=== PATIENT | male | born 1955 | race African-American/Black ===

== ENCOUNTER 2018-07-07 04:53 | Inpatient (IN) | payer MEDICARE, MEDICAID ==
[~2018-07-07] VITALS: Ht 175.3 cm; Wt 81.6 kg
[2018-07-07] MEDS ORDERED: ALBUTEROL (0.5%) 2.5MG/0.5ML NEB HHN ONE (05:45)
[2018-07-07 06:07] LABS: BASOPHILS % 2.1 % (0.0-2.0); EOSINOPHILS % 0.7 % (0.0-5.0); HEMATOCRIT. 41.4 % (42.0-52.0); HEMOGLOBIN. 13.8 g/dL (14.0-18.0); LYMPHOCYTES % 30.9 % (20.0-50.0); MEAN CORPUSCULAR HEMOGLOBIN 32.8 pg (28.0-32.0); MEAN CORPUSCULAR VOLUME 98.2 fL (80.0-94.0); MEAN PLATELET VOLUME 8.6 fl (7.4-10.4); MONOCYTES % 7.2 % (2.0-8.0); NEUTROPHILS % 59.1 % (40.0-76.0); PLATELET 302 x1000/uL (130-400); RED BLOOD CELL COUNT 4.22 mill/uL (4.7-6.1); RED CELL DISTRIBUTION WIDTH 15.8 % (11.6-14.6)
[2018-07-07 06:18] LABS: CLARITY URINE CLEAR (CLEAR); COLOR URINE DARK YELLOW (YELLOW); KETONES URINE NEGATIVE (NEGATIVE); LEUKOCYTE ESTERASE URINE NEGATIVE (NEGATIVE); NITRITE URINE NEGATIVE (NEGATIVE); OCCULT BLOOD URINE NEGATIVE (NEGATIVE); PROTEIN URINE 1+ (NEGATIVE); SPECIFIC GRAVITY URINE 1.025 (1.005-1.030)
[2018-07-07 06:21] LABS: INR 1.3; PARTIAL THROMBOPLASTIN TIME 29.7 sec (23.4-31.0); PROTHROMBIN TIME 13.4 sec (9.1-11.1)
[2018-07-07 06:27] LABS: CHLORIDE 109 mEq/L (98-107)
[2018-07-07] MEDS ORDERED: FUROSEMIDE 40MG/4ML VIAL IVP NR (07:00)
[2018-07-07] MEDS ORDERED: NITROGLYCERIN 0.4MG TABLET SL SL ONE (07:15)
[2018-07-07] MEDS ORDERED: NITROGLYCERIN OINT 1GM/INCH UDPKT TD ONE (07:15)
[2018-07-07] MEDS ORDERED: MAGNESIUM/ALUMINUM HYDROXIDE/SIMETHICONE 30ML UDC PO PRN (08:15)
[2018-07-07] MEDS ORDERED: KETOROLAC 15MG/ML VIAL IV PRN (08:15)
[2018-07-07] MEDS ORDERED: DOCUSATE SODIUM 100MG CAPSULE PO PRN (08:15)
[2018-07-07] MEDS ORDERED: CLONIDINE 0.1MG TABLET PO PRN (08:15)
[2018-07-07] MEDS ORDERED: ZOLPIDEM TARTRATE 5MG TABLET PO PRN (08:15)
[2018-07-07] MEDS ORDERED: NA PHOS,M-B/NA PHOS,DI-BA ENEMA 118ML PR PRN (08:15)
[2018-07-07] MEDS ORDERED: ACETAMINOPHEN 325MG TABLET PO PRN (08:15)
[2018-07-07] MEDS ORDERED: ONDANSETRON HCL 4MG/2ML INJ IV PRN (08:15)
[2018-07-07] MEDS ORDERED: NITROGLYCERIN 0.4MG TABLET SL SL PRN (08:15)
[2018-07-07] MEDS ORDERED: IPRATROPIUM/ALBUTEROL 0.5-3(2.5)MG/3ML NEB INH PRN (08:15)
[2018-07-07] MEDS ORDERED: GUAIFENESIN 200MG/10ML SUGAR FREE UDC PO PRN (08:15)
[2018-07-07 10:50] VITALS: BP 142/108
[2018-07-07] MEDS ORDERED: FUROSEMIDE 40MG/4ML VIAL IVP SCH (11:19)
[2018-07-07 11:25] VITALS: BP 142/102
[2018-07-07] MEDS: ENOXAPARIN 40MG/0.4ML SYR SUBCUT SCH (12:00)
[2018-07-07] MEDS: LISINOPRIL 20MG TABLET PO SCH ×2 (14:07→21:04)
[2018-07-07] MEDS: FAMOTIDINE 20MG TABLET PO SCH ×2 (14:07→23:30)
[2018-07-07] MEDS: ASPIRIN 325MG EC TABLET PO SCH (14:07)
[2018-07-07] MEDS: SPIRONOLACTONE 25MG TABLET PO SCH ×2 (14:07→21:05)
[2018-07-07 16:00] VITALS: BP 143/112
[2018-07-07 16:14] LABS: CREATINE KINASE MB FRACTION 1.8 ng/mL (0.5-3.6)
[2018-07-07 16:33] LABS: HEPATITIS B SURFACE ANTIGEN NEGATIVE
[2018-07-07 16:52] LABS: VITAMIN B12 SERUM 581 pg/mL (211-911)
[2018-07-07 17:01] LABS: FOLIC ACID (FOLATE) SERUM > 20.00 ng/mL (>5.38); HEPATITIS B CORE AB IGM NEGATIVE
[2018-07-07 17:03] LABS: HEPATITIS A AB IGM NEGATIVE (NEGATIVE)
[2018-07-07] MEDS: CARVEDILOL 3.125 MG TABLET PO SCH (17:46)
[2018-07-07 20:29] VITALS: BP 134/99
[2018-07-07] MEDS: FUROSEMIDE 40MG/4ML VIAL IVP SCH (21:08)
[2018-07-07 22:54] LABS: *BARBITURATES SCREEN URINE NEGATIVE (NEGATIVE); *BENZODIAZEPINES SCREEN URINE NEGATIVE (NEGATIVE); *COCAINE SCREEN URINE NEGATIVE (NEGATIVE); CANNABINOID URINE SCREEN PRESUMTIVE POSITIVE (NEGATIVE); OPIATES URINE SCREEN NEGATIVE (NEGATIVE); PHENCYCLIDINE URINE SCREEN NEGATIVE (NEGATIVE)
[2018-07-07 22:55] LABS: *AMPHETAMINES SCREEN URINE NEGATIVE (NEGATIVE); METHADONE URINE SCREEN NEGATIVE (NEGATIVE)
[2018-07-08 00:24] LABS: CREATINE KINASE MB FRACTION 1.5 ng/mL (0.5-3.6)
[2018-07-08 00:42] VITALS: BP 138/104
[2018-07-08 04:00] VITALS: BP 149/109
[2018-07-08] MEDS: CARVEDILOL 3.125 MG TABLET PO SCH ×2 (06:12→18:28)
[2018-07-08 08:00] VITALS: BP 139/107
[2018-07-08] MEDS: FUROSEMIDE 40MG/4ML VIAL IVP SCH ×2 (08:54→20:53)
[2018-07-08] MEDS: LISINOPRIL 20MG TABLET PO SCH ×2 (08:54→20:54)
[2018-07-08] MEDS: SPIRONOLACTONE 25MG TABLET PO SCH ×2 (08:54→20:53)
[2018-07-08] MEDS: ASPIRIN 325MG EC TABLET PO SCH (08:55)
[2018-07-08] MEDS: FAMOTIDINE 20MG TABLET PO SCH ×2 (08:55→20:54)
[2018-07-08] MEDS: ENOXAPARIN 40MG/0.4ML SYR SUBCUT SCH (08:55)
[2018-07-08 12:00] VITALS: BP 135/89
[2018-07-08 16:00] VITALS: BP 120/85
[2018-07-08 20:10] VITALS: BP 112/77
[2018-07-09 00:05] VITALS: BP 108/79
[2018-07-09 04:09] VITALS: BP 118/90
[2018-07-09] MEDS: CARVEDILOL 3.125 MG TABLET PO SCH (05:43)
[2018-07-09 07:22] VITALS: BP 120/88
[2018-07-09] MEDS: FAMOTIDINE 20MG TABLET PO SCH ×2 (08:41→21:44)
[2018-07-09] MEDS: FUROSEMIDE 40MG/4ML VIAL IVP SCH ×2 (08:41→21:00)
[2018-07-09] MEDS: ASPIRIN 325MG EC TABLET PO SCH (08:41)
[2018-07-09] MEDS: ENOXAPARIN 40MG/0.4ML SYR SUBCUT SCH (08:42)
[2018-07-09] MEDS: LISINOPRIL 20MG TABLET PO SCH ×2 (08:42→21:00)
[2018-07-09] MEDS: SPIRONOLACTONE 25MG TABLET PO SCH ×2 (08:42→21:00)
[2018-07-09] MEDS ORDERED: POTASSIUM CHLORIDE 20MEQ/PACKET PO NR (10:15)
[2018-07-09 11:36] VITALS: BP 107/66
[2018-07-09] MEDS: POTASSIUM CHLORIDE 10MEQ TABLET SR PO SCH (12:00)
[2018-07-09] MEDS: SILDENAFIL CITRATE 20MG TABLET PO SCH ×2 (13:38→21:47)
[2018-07-09 16:01] LABS: BG CARBOXYHEMOGLOBIN 1.1 % (0.5-1.5); BG DEOXYHEMOGLOBIN 6.5 % (0.0-5.0); BG FRACTION INSPIRED OXYGEN 21; BG HCO3 ACT 27.7 mmol/L (22.0-26.0); BG METHEMOGLOBIN 0.8 % (0.0-1.5); BG OXYGEN SATURATION 93.4 % (92.0-98.5); BG OXYHEMOGLOBIN 91.6 % (94.0-97.0); BG PCO2 42.7 mmHg (35.0-45.0); BG PO2 75.5 mmHg (75.0-100.0); BG SAMPLE SITE RIGHT BRACHIAL; BG TOTAL HEMOGLOBIN 14.2 g/dL (12.0-18.0); BG VENT MODE ROOM AIR
[2018-07-09] MEDS: CARVEDILOL 6.25 MG TABLET PO SCH (17:52)
[2018-07-09 20:00] VITALS: BP 96/74
[2018-07-10] VITALS: BP 109/74
[2018-07-10 04:11] VITALS: BP 108/79
[2018-07-10] MEDS: CARVEDILOL 6.25 MG TABLET PO SCH ×2 (06:00→18:00)
[2018-07-10 06:38] LABS: HEMATOCRIT 37.5 % (42.0-52.0); HEMOGLOBIN 12.7 g/dL (14.0-18.0); MEAN CORPUSCULAR HEMOGLOBIN 32.6 pg (28.0-32.0); MEAN CORPUSCULAR VOLUME 96.7 fL (80.0-94.0); PLATELET 262 x1000/uL (130-400); RED BLOOD CELL COUNT 3.88 mill/uL (4.7-6.1); RED CELL DISTRIBUTION WIDTH 15.1 % (11.6-14.6)
[2018-07-10] MEDS: SILDENAFIL CITRATE 20MG TABLET PO SCH ×2 (06:39→14:00)
[2018-07-10 06:52] LABS: CHLORIDE 104 mEq/L (98-107)
[2018-07-10 08:00] VITALS: BP 108/80
[2018-07-10] MEDS: FAMOTIDINE 20MG TABLET PO SCH (08:28)
[2018-07-10] MEDS: FUROSEMIDE 40MG/4ML VIAL IVP SCH ×2 (08:28→08:39)
[2018-07-10] MEDS: POTASSIUM CHLORIDE 10MEQ TABLET SR PO SCH (08:28)
[2018-07-10] MEDS: ASPIRIN 325MG EC TABLET PO SCH (08:28)
[2018-07-10] MEDS: ENOXAPARIN 40MG/0.4ML SYR SUBCUT SCH (08:29)
[2018-07-10] MEDS: LISINOPRIL 20MG TABLET PO SCH ×2 (08:34→08:38)
[2018-07-10] MEDS: SPIRONOLACTONE 25MG TABLET PO SCH (08:34)
[2018-07-10 12:00] VITALS: BP 103/81
[2018-07-10 16:00] VITALS: BP 121/91
[2018-07-10 18:31] VITALS: BP 117/89
== END 2018-07-10 19:30 | disposition home or self-care (01) | DRG 291 ==
LOC: ER 04:53 → 6WST 07:42 → EDBEDREQ 07:45 → ENRESERV 09:49 → CANRESERV 09:49
PROVIDERS: ADMIT Internal Medicine; ATTEND Internal Medicine
DX: I13.0 Hypertensive heart and chronic kidney disease with heart failure and stage 1 through stage 4 chronic kidney disease, or unspecified chronic kidney disease (principal); I50.23 Acute on chronic systolic (congestive) heart failure; J96.00 Acute respiratory failure, unspecified whether with hypoxia or hypercapnia; J98.11 Atelectasis; N17.9 Acute kidney failure, unspecified; R17 Unspecified jaundice; F12.90 Cannabis use, unspecified, uncomplicated; D64.9 Anemia, unspecified; E87.6 Hypokalemia; I27.20 Pulmonary hypertension, unspecified; I34.0 Nonrheumatic mitral (valve) insufficiency; I42.9 Cardiomyopathy, unspecified; N18.9 Chronic kidney disease, unspecified; Z87.891 Personal history of nicotine dependence; Z91.11 Patient's noncompliance with dietary regimen; Z91.14 Patient's other noncompliance with medication regimen
CPT/HCPCS: 36415; 36600; 71045; 76700; 80048; 80053; 80061; 80076; 80305; 81003; 82375; 82550; 82553; 82607; 82746; 82805; 83036; 83540; 83550; 83735; 83880; 84132; 84443; 84484; 85025; 85027; 85610; 85730; 86705; 86709; 86803; 87340; 93005; 93306; 93970; 94618; 94640; 96374; 99285; J1650; J1940; J7611; J7620

== ENCOUNTER 2019-05-04 17:20 | Emergency (ER) | payer MEDICARE, MEDICAID ==
[~2019-05-04] VITALS: Ht 175.3 cm; Wt 90.0 kg
[2019-05-04 17:43] VITALS: BP 109/88
== END 2019-05-05 02:54 | disposition left against medical advice (07) ==
LOC: ER 17:20
DX: R07.89 Other chest pain (principal); Z53.21 Procedure and treatment not carried out due to patient leaving prior to being seen by health care provider
CPT/HCPCS: 93005

== ENCOUNTER 2019-07-23 01:41 | Inpatient (IN) | payer MEDICARE, MEDICAID ==
[~2019-07-23] VITALS: Ht 175.3 cm; Wt 89.4 kg
[2019-07-23] MEDS ORDERED: FUROSEMIDE 40MG/4ML VIAL IV ONE (03:15)
[2019-07-23 03:28] LABS: BASOPHILS % 1.5 % (0.0-2.0); EOSINOPHILS % 2.2 % (0.0-5.0); HEMATOCRIT. 37.8 % (42.0-52.0); LYMPHOCYTES % 32.7 % (20.0-50.0); MEAN CORPUSCULAR HEMOGLOBIN 33.5 pg (28.0-32.0); MEAN CORPUSCULAR VOLUME 97.2 fL (80.0-94.0); MEAN PLATELET VOLUME 7.8 fl (7.4-10.4); MONOCYTES % 7.4 % (2.0-8.0); NEUTROPHILS % 56.2 % (40.0-76.0); PLATELET 300 x1000/uL (130-400); RED BLOOD CELL COUNT 3.89 mill/uL (4.7-6.1)
[2019-07-23 03:34] LABS: CHLORIDE 105 mEq/L (98-107)
[2019-07-23] MEDS ORDERED: IOHEXOL-350 100 ML BOTTLE ONE (07:00)
[2019-07-23 08:00] VITALS: BP 131/88
[2019-07-23 08:01] VITALS: BP 131/88
[2019-07-23] MEDS ORDERED: POTA20TA82 PO (08:25)
[2019-07-23] MEDS ORDERED: CARV3.1242 PO (08:25)
[2019-07-23] MEDS ORDERED: FURO40TA5 PO (08:25)
[2019-07-23] MEDS ORDERED: LOSA50TA41 PO (08:26)
[2019-07-23] MEDS ORDERED: ASPI-986 PO (08:26)
[2019-07-23] MEDS ORDERED: GUAIFENESIN-DM 200MG-20MG/10ML UDC PO PRN (10:00)
[2019-07-23] MEDS ORDERED: IPRATROPIUM/ALBUTEROL 0.5-3(2.5)MG/3ML NEB HHN PRN (10:00)
[2019-07-23 11:48] VITALS: BP 132/82
[2019-07-23 12:31] VITALS: BP 134/61
[2019-07-23 16:00] VITALS: BP 128/56
[2019-07-23 20:00] VITALS: BP 135/72
[2019-07-24] VITALS (7 sets, daily range): BP systolic 124–143; BP diastolic 69–93
[2019-07-24 11:12] LABS: LDL CHOLESTEROL 79 mg/dL (5-100)
[2019-07-24 11:15] LABS: HDL CHOLESTEROL 59 mg/dL (40-59)
[2019-07-24] MEDS ORDERED: IPRATROPIUM/ALBUTEROL 0.5-3(2.5)MG/3ML NEB HHN PRN (12:15)
[2019-07-24] MEDS: FUROSEMIDE 40MG TABLET PO SCH (12:39)
[2019-07-24] MEDS: LOSARTAN POTASSIUM 50 MG TABLET PO SCH (12:39)
[2019-07-24] MEDS: POTASSIUM CHLORIDE 20MEQ TABLET SR PO SCH (12:39)
[2019-07-24] MEDS: METHYLPREDNISOLONE SOD SUCC 40 MG/ML VIAL IV SCH ×2 (12:39→20:48)
[2019-07-24] MEDS: CARVEDILOL 6.25 MG TABLET PO SCH (20:48)
[2019-07-24] MEDS: GUAIFENESIN 600MG ER TABLET PO SCH (20:48)
[2019-07-25] VITALS: BP 130/85
[2019-07-25 04:00] VITALS: BP 143/88
[2019-07-25] MEDS: METHYLPREDNISOLONE SOD SUCC 40 MG/ML VIAL IV SCH ×3 (05:15→21:08)
[2019-07-25 08:00] VITALS: BP 130/99
[2019-07-25] MEDS: FUROSEMIDE 40MG TABLET PO SCH (09:03)
[2019-07-25] MEDS: POTASSIUM CHLORIDE 20MEQ TABLET SR PO SCH (09:04)
[2019-07-25] MEDS: GUAIFENESIN 600MG ER TABLET PO SCH ×2 (09:04→20:14)
[2019-07-25] MEDS: CARVEDILOL 6.25 MG TABLET PO SCH ×2 (09:04→20:15)
[2019-07-25] MEDS: LOSARTAN POTASSIUM 50 MG TABLET PO SCH (09:04)
[2019-07-25 12:42] VITALS: BP 160/117
[2019-07-25 16:38] VITALS: BP 167/102
[2019-07-25 20:00] VITALS: BP 136/97
[2019-07-26] VITALS: BP 135/90
[2019-07-26 04:00] VITALS: BP 124/81
[2019-07-26] MEDS: METHYLPREDNISOLONE SOD SUCC 40 MG/ML VIAL IV SCH ×3 (04:01→20:45)
[2019-07-26 08:00] VITALS: BP 151/82
[2019-07-26] MEDS: POTASSIUM CHLORIDE 20MEQ TABLET SR PO SCH (09:36)
[2019-07-26] MEDS: FUROSEMIDE 40MG TABLET PO SCH (09:36)
[2019-07-26] MEDS: GUAIFENESIN 600MG ER TABLET PO SCH ×2 (09:36→20:45)
[2019-07-26] MEDS: CARVEDILOL 6.25 MG TABLET PO SCH ×2 (09:36→20:45)
[2019-07-26] MEDS: LOSARTAN POTASSIUM 50 MG TABLET PO SCH (09:36)
[2019-07-26 12:00] VITALS: BP 130/80
[2019-07-26 16:00] VITALS: BP 147/82
[2019-07-26 20:00] VITALS: BP 143/79
[2019-07-27] VITALS: BP 143/78
[2019-07-27 04:00] VITALS: BP 134/90
[2019-07-27] MEDS: METHYLPREDNISOLONE SOD SUCC 40 MG/ML VIAL IV SCH ×3 (04:25→20:33)
[2019-07-27 06:54] LABS: HEMATOCRIT. 37.8 % (42.0-52.0); HEMOGLOBIN. 13.1 g/dL (14.0-18.0); MEAN CORPUSCULAR HEMOGLOBIN 33.6 pg (28.0-32.0); MEAN CORPUSCULAR VOLUME 96.9 fL (80.0-94.0); MEAN PLATELET VOLUME 8.2 fl (7.4-10.4); PLATELET 313 x1000/uL (130-400); RED CELL DISTRIBUTION WIDTH 13.9 % (11.6-14.6)
[2019-07-27 07:25] LABS: CHLORIDE 106 mEq/L (98-107)
[2019-07-27 08:00] VITALS: BP 147/85
[2019-07-27] MEDS: GUAIFENESIN 600MG ER TABLET PO SCH ×2 (09:26→20:33)
[2019-07-27] MEDS: LOSARTAN POTASSIUM 50 MG TABLET PO SCH (09:26)
[2019-07-27] MEDS: FUROSEMIDE 40MG TABLET PO SCH (09:26)
[2019-07-27] MEDS: POTASSIUM CHLORIDE 20MEQ TABLET SR PO SCH (09:26)
[2019-07-27] MEDS: CARVEDILOL 6.25 MG TABLET PO SCH ×2 (09:27→20:33)
[2019-07-27 12:00] VITALS: BP 146/76
[2019-07-27 16:00] VITALS: BP 143/82
[2019-07-27 18:12] LABS: PLATELET ESTIMATE NORMAL
[2019-07-27 20:00] VITALS: BP 139/97
[2019-07-28] VITALS: BP 125/71
[2019-07-28 04:00] VITALS: BP 130/83
[2019-07-28] MEDS: METHYLPREDNISOLONE SOD SUCC 40 MG/ML VIAL IV SCH ×3 (04:36→20:29)
[2019-07-28 08:00] VITALS: BP 153/78
[2019-07-28] MEDS: LOSARTAN POTASSIUM 50 MG TABLET PO SCH (08:27)
[2019-07-28] MEDS: GUAIFENESIN 600MG ER TABLET PO SCH ×2 (08:27→20:29)
[2019-07-28] MEDS: POTASSIUM CHLORIDE 20MEQ TABLET SR PO SCH (08:27)
[2019-07-28] MEDS: CARVEDILOL 6.25 MG TABLET PO SCH ×2 (08:27→20:29)
[2019-07-28] MEDS: FUROSEMIDE 40MG TABLET PO SCH (08:27)
[2019-07-28 12:00] VITALS: BP 142/78
[2019-07-28 16:00] VITALS: BP 147/89
[2019-07-28 20:00] VITALS: BP 131/67
[2019-07-29 04:00] VITALS: BP 137/86
[2019-07-29] MEDS: METHYLPREDNISOLONE SOD SUCC 40 MG/ML VIAL IV SCH ×3 (04:20→20:36)
[2019-07-29 08:00] VITALS: BP 155/75
[2019-07-29] MEDS: CARVEDILOL 6.25 MG TABLET PO SCH ×2 (09:22→20:36)
[2019-07-29] MEDS: GUAIFENESIN 600MG ER TABLET PO SCH ×2 (09:22→20:36)
[2019-07-29] MEDS: LOSARTAN POTASSIUM 50 MG TABLET PO SCH (09:22)
[2019-07-29] MEDS: FUROSEMIDE 40MG TABLET PO SCH (09:22)
[2019-07-29] MEDS: POTASSIUM CHLORIDE 20MEQ TABLET SR PO SCH (09:22)
[2019-07-29 12:00] VITALS: BP 137/79
[2019-07-29 16:00] VITALS: BP 145/89
[2019-07-29 17:42] LABS: HEMATOCRIT. 41.5 % (42.0-52.0); MEAN CORPUSCULAR HEMOGLOBIN 33.2 pg (28.0-32.0); MEAN CORPUSCULAR VOLUME 98.2 fL (80.0-94.0); MEAN PLATELET VOLUME 8.3 fl (7.4-10.4); PLATELET 341 x1000/uL (130-400); RED BLOOD CELL COUNT 4.22 mill/uL (4.7-6.1); RED CELL DISTRIBUTION WIDTH 14.1 % (11.6-14.6)
[2019-07-29 18:45] LABS: PLATELET ESTIMATE NORMAL
[2019-07-29 20:00] VITALS: BP 114/84
[2019-07-30] VITALS: BP 127/85
[2019-07-30 04:00] VITALS: BP 134/82
[2019-07-30] MEDS: METHYLPREDNISOLONE SOD SUCC 40 MG/ML VIAL IV SCH ×3 (05:03→21:12)
[2019-07-30 08:00] VITALS: BP 142/80
[2019-07-30] MEDS: CARVEDILOL 6.25 MG TABLET PO SCH ×2 (09:00→21:12)
[2019-07-30] MEDS: POTASSIUM CHLORIDE 20MEQ TABLET SR PO SCH (09:24)
[2019-07-30] MEDS: LOSARTAN POTASSIUM 50 MG TABLET PO SCH (09:27)
[2019-07-30] MEDS: GUAIFENESIN 600MG ER TABLET PO SCH ×2 (09:27→21:12)
[2019-07-30] MEDS: FUROSEMIDE 40MG TABLET PO SCH (09:27)
[2019-07-30 12:00] VITALS: BP 133/89
[2019-07-30 16:00] VITALS: BP 131/71
[2019-07-30 20:00] VITALS: BP 118/72
[2019-07-31] VITALS: BP 120/76
[2019-07-31 04:00] VITALS: BP 139/81
[2019-07-31] MEDS: METHYLPREDNISOLONE SOD SUCC 40 MG/ML VIAL IV SCH (04:30)
[2019-07-31 08:00] VITALS: BP 153/92
[2019-07-31] MEDS: GUAIFENESIN 600MG ER TABLET PO SCH (10:09)
[2019-07-31] MEDS: CARVEDILOL 6.25 MG TABLET PO SCH (10:10)
[2019-07-31] MEDS: FUROSEMIDE 40MG TABLET PO SCH (10:10)
[2019-07-31] MEDS: LOSARTAN POTASSIUM 50 MG TABLET PO SCH (10:10)
[2019-07-31] MEDS: POTASSIUM CHLORIDE 20MEQ TABLET SR PO SCH (10:10)
[2019-08-01 13:06] LABS: QFT TB GOLD PLUS Positive (Negative); QFT TB1 AG VALUE >10.00 IU/mL (.)
== END 2019-07-31 12:00 | disposition left against medical advice (07) | DRG 291 ==
LOC: ER 01:41 → 7WST 06:27 → EDBEDREQTM 06:30 → EDBEDREQ 06:30 → ENRESERV 07:05
PROVIDERS: ADMIT Internal Medicine; ATTEND Internal Medicine
DX: I13.0 Hypertensive heart and chronic kidney disease with heart failure and stage 1 through stage 4 chronic kidney disease, or unspecified chronic kidney disease (principal); I50.43 Acute on chronic combined systolic (congestive) and diastolic (congestive) heart failure; R17 Unspecified jaundice; J20.8 Acute bronchitis due to other specified organisms; I42.9 Cardiomyopathy, unspecified; I34.0 Nonrheumatic mitral (valve) insufficiency; I27.20 Pulmonary hypertension, unspecified; I25.10 Atherosclerotic heart disease of native coronary artery without angina pectoris; D64.9 Anemia, unspecified; N18.9 Chronic kidney disease, unspecified; R73.03 Prediabetes; R06.03 Acute respiratory distress; R74.0 Nonspecific elevation of levels of transaminase and lactic acid dehydrogenase [LDH]; R76.11 Nonspecific reaction to tuberculin skin test without active tuberculosis; Z87.891 Personal history of nicotine dependence; I25.2 Old myocardial infarction; Z91.14 Patient's other noncompliance with medication regimen; Z91.19 Patient's noncompliance with other medical treatment and regimen
CPT/HCPCS: 36415; 71045; 71250; 71275; 80048; 80061; 83036; 83880; 84145; 84484; 86480; 93005; 93306; 99285; J1940; J2920; Q9967

== ENCOUNTER 2020-05-30 07:04 | Inpatient (IN) | payer OTHER, MEDICAID ==
[~2020-05-30] VITALS: Ht 175.3 cm; Wt 77.1 kg
[~2020-05-30 07:04] MED LIST: ASPI-986 PO; CARV3.1242 PO; FURO40TA5 PO; LOSA50TA41 PO; POTA20TA82 PO
[2020-05-30] MEDS ORDERED: MORPHINE SULFATE 4 MG/ML CPJ (NOT FOR IM USE) IV ONE (08:15)
[2020-05-30 08:39] LABS: BASOPHILS % 1.6 % (0.0-2.0); EOSINOPHILS % 0.7 % (0.0-5.0); HEMATOCRIT. 47.4 % (42.0-52.0); LYMPHOCYTES % 30.3 % (20.0-50.0); MEAN CORPUSCULAR HEMOGLOBIN 32.6 pg (28.0-32.0); MEAN CORPUSCULAR VOLUME 96.5 fL (80.0-94.0); MEAN PLATELET VOLUME 7.7 fl (7.4-10.4); MONOCYTES % 8.8 % (2.0-8.0); NEUTROPHILS % 58.6 % (40.0-76.0); PLATELET 516 x1000/uL (130-400); RED BLOOD CELL COUNT 4.91 mill/uL (4.7-6.1); RED CELL DISTRIBUTION WIDTH 13.1 % (11.6-14.6)
[2020-05-30 08:43] LABS: CHLORIDE 103 mEq/L (98-107)
[2020-05-30] MEDS ORDERED: REGADENOSON 0.4 MG/5 ML IV ONE (08:59)
[2020-05-30] MEDS ORDERED: ASPIRIN 325MG EC TABLET PO ONE (09:30)
[2020-05-30] MEDS ORDERED: LEVOFLOXACIN 750MG PREMIX 150 ML IV ONE (09:30)
[2020-05-30] MEDS ORDERED: ASPIRIN 81MG TABLET PO NR (12:30)
[2020-05-30] MEDS ORDERED: FUROSEMIDE 20MG/2ML VIAL IVP NR (12:30)
[2020-05-30 12:45] VITALS: BP 116/85
[2020-05-30 12:46] VITALS: BP 116/85
[2020-05-30] MEDS: CARVEDILOL 3.125 MG TABLET PO SCH ×2 (14:38→22:01)
[2020-05-30] MEDS ORDERED: IPRATROPIUM/ALBUTEROL 0.5-3(2.5)MG/3ML NEB HHN PRN (15:30)
[2020-05-30] MEDS ORDERED: ONDANSETRON HCL 4MG/2ML INJ IV PRN (15:30)
[2020-05-30] MEDS ORDERED: HYDROCODONE/ACETAMINOPHEN 5/325MG TABLET PO PRN (15:30)
[2020-05-30] MEDS ORDERED: ACETAMINOPHEN 325MG TABLET PO PRN (15:30)
[2020-05-30 16:00] VITALS: BP 113/87
[2020-05-30 20:00] VITALS: BP 119/83
[2020-05-30] MEDS ORDERED: ENOXAPARIN 30MG/0.3ML SYR SUBCUT SCH (22:00)
[2020-05-31] VITALS: BP 104/74
[2020-05-31 00:57] LABS: CREATINE KINASE 75 IU/L (39-308)
[2020-05-31 00:58] LABS: CREATINE KINASE MB FRACTION < 1.0 ng/mL (0.5-3.6)
[2020-05-31 04:00] VITALS: BP 108/87
[2020-05-31 07:35] LABS: CREATINE KINASE 72 IU/L (39-308)
[2020-05-31 07:37] LABS: CREATINE KINASE MB FRACTION < 1.0 ng/mL (0.5-3.6)
[2020-05-31 08:00] VITALS: BP 118/91
[2020-05-31] MEDS ORDERED: ASPIRIN 81MG TABLET PO SCH (09:00)
[2020-05-31 09:16] LABS: BASOPHILS % 0.4 % (0.0-2.0); EOSINOPHILS % 0.7 % (0.0-5.0); HEMATOCRIT. 39.6 % (42.0-52.0); HEMOGLOBIN. 13.7 g/dL (14.0-18.0); LYMPHOCYTES % 39.4 % (20.0-50.0); MEAN CORPUSCULAR HEMOGLOBIN 33.3 pg (28.0-32.0); MEAN CORPUSCULAR VOLUME 96.1 fL (80.0-94.0); MEAN PLATELET VOLUME 7.9 fl (7.4-10.4); MONOCYTES % 13.4 % (2.0-8.0); NEUTROPHILS % 46.1 % (40.0-76.0); PLATELET 422 x1000/uL (130-400); RED BLOOD CELL COUNT 4.12 mill/uL (4.7-6.1); RED CELL DISTRIBUTION WIDTH 13.5 % (11.6-14.6)
[2020-05-31] MEDS: CARVEDILOL 3.125 MG TABLET PO SCH (09:23)
[2020-05-31 12:00] VITALS: BP 115/76
[2020-05-31] MEDS ORDERED: LEVO500T2 PO (12:23)
[2020-05-31] MEDS ORDERED: ALBU90AE INH (12:23)
[2020-05-31] MEDS ORDERED: FUROSEMIDE 40MG TABLET PO NR (14:30)
[2020-05-31] MEDS ORDERED: POTASSIUM CHLORIDE 10MEQ TABLET SR PO NR (14:30)
[2020-05-31] MEDS ORDERED: LEVOFLOXACIN 750MG PREMIX 150 ML IV NR (15:30)
[2020-05-31 15:50] LABS: CREATINE KINASE 77 IU/L (39-308)
[2020-05-31 15:57] LABS: CREATINE KINASE MB FRACTION < 1.0 ng/mL (0.5-3.6)
[2020-05-31 16:17] LABS: T4 FREE 1.25 ng/dL (0.76-1.46)
[2020-05-31] MEDS ORDERED: ENOXAPARIN 40MG/0.4ML SYR SUBCUT SCH (21:00)
== END 2020-05-31 17:08 | disposition home or self-care (01) | DRG 177 ==
LOC: ER 07:04 → 5WST 10:41 → EDBEDREQTM 10:43 → EDBEDREQ 10:43 → ENRESERV 11:29
PROVIDERS: ADMIT Internal Medicine; ATTEND Internal Medicine
DX: U07.1 COVID-19 (principal); J18.9 Pneumonia, unspecified organism; I50.23 Acute on chronic systolic (congestive) heart failure; I13.0 Hypertensive heart and chronic kidney disease with heart failure and stage 1 through stage 4 chronic kidney disease, or unspecified chronic kidney disease; I42.9 Cardiomyopathy, unspecified; I50.22 Chronic systolic (congestive) heart failure; J44.0 Chronic obstructive pulmonary disease with (acute) lower respiratory infection; N17.9 Acute kidney failure, unspecified; D64.9 Anemia, unspecified; E78.5 Hyperlipidemia, unspecified; I25.10 Atherosclerotic heart disease of native coronary artery without angina pectoris; I27.20 Pulmonary hypertension, unspecified; I34.0 Nonrheumatic mitral (valve) insufficiency; N18.9 Chronic kidney disease, unspecified; Z79.899 Other long term (current) drug therapy; Z87.891 Personal history of nicotine dependence; Z91.19 Patient's noncompliance with other medical treatment and regimen; Z20.828 Contact with and (suspected) exposure to other viral communicable diseases
CPT/HCPCS: 36415; 71045; 80048; 80053; 80061; 82550; 82553; 83036; 83880; 84439; 84443; 84484; 85025; 87635; 93005; 93306; 99285; J1650; J1940; J1956; J2785

== ENCOUNTER 2022-12-07 08:50 | Inpatient (IN) | payer OTHER, MEDICAID ==
[~2022-12-07] VITALS: Ht 175.3 cm; Wt 82.7 kg
[~2022-12-07 08:50] MED LIST changes: +ALBU90AE INH; -ASPI-986 PO; +LEVO500T2 PO; +POTA-205 PO; -POTA20TA82 PO
[2022-12-07] MEDS ORDERED: SODIUM CHLORIDE 0.9% 1,000 ML IV ONE (09:15)
[2022-12-07 09:59] LABS: CHLORIDE 105 mEq/L (98-107)
[2022-12-07 10:05] LABS: BASOPHILS % 0.7 % (0.0-2.0); EOSINOPHILS % 1.9 % (0.0-5.0); HEMATOCRIT. 41.9 % (42.0-52.0); HEMOGLOBIN. 14.1 g/dL (14.0-18.0); LYMPHOCYTES % 17.6 % (20.0-50.0); MEAN CORPUSCULAR HEMOGLOBIN 31.9 pg (28.0-32.0); MEAN PLATELET VOLUME 8.6 fl (7.4-10.4); MONOCYTES % 5.8 % (2.0-8.0); PLATELET 152 x1000/uL (130-400); RED BLOOD CELL COUNT 4.41 mill/uL (4.7-6.1); RED CELL DISTRIBUTION WIDTH 14.5 % (11.6-14.6)
[2022-12-07 10:08] LABS: INR 1.2; PROTHROMBIN TIME 12.5 sec (9.6-11.0)
[2022-12-07] MEDS ORDERED: IOHEXOL-350 100 ML BOTTLE ONE (11:56)
[2022-12-07] MEDS ORDERED: ASPIRIN 325MG EC TABLET PO ONE (13:30)
[2022-12-07 16:00] VITALS: BP 146/85
[2022-12-07] MEDS ORDERED: ACETAMINOPHEN 325MG TABLET PO PRN (17:00)
[2022-12-07] MEDS ORDERED: IPRATROPIUM/ALBUTEROL 0.5-3(2.5)MG/3ML NEB HHN PRN (17:00)
[2022-12-07] MEDS ORDERED: ONDANSETRON HCL 4MG/2ML INJ IV PRN (17:00)
[2022-12-07] MEDS ORDERED: ALBUTEROL (0.083%) 2.5MG/3ML NEB HHN PRN (17:00)
[2022-12-07] MEDS ORDERED: IPRATROPIUM BROMIDE (0.02%) 0.5MG/2.5ML NEB HHN PRN (17:00)
[2022-12-07 17:30] VITALS: BP 146/85
[2022-12-07] MEDS ORDERED: FURO20TA4 MT (17:40)
[2022-12-07] MEDS ORDERED: POTA5TAB2 MT (17:40)
[2022-12-07] MEDS ORDERED: CARV3.1242 MT (17:40)
[2022-12-07] MEDS ORDERED: ASPI-986 MT (17:40)
[2022-12-07] MEDS ORDERED: INFLUENZA VACCINE 05/PF 0.5 ML SYRINGE IM ONE (18:30)
[2022-12-07] MEDS: ENOXAPARIN 40MG/0.4ML SYR SUBCUT SCH (18:57)
[2022-12-07 20:00] VITALS: BP 146/76
[2022-12-08] VITALS: BP 125/75
[2022-12-08 04:00] VITALS: BP 120/58
[2022-12-08 07:28] LABS: CREATINE KINASE 88 IU/L (39-308); CREATINE KINASE MB FRACTION < 1.0 ng/mL (0.5-3.6)
[2022-12-08 07:30] LABS: CHLORIDE 110 mEq/L (98-107)
[2022-12-08 08:00] VITALS: BP 135/60
[2022-12-08] MEDS ORDERED: ASPIRIN 325MG TABLET PO SCH (09:00)
[2022-12-08 12:00] VITALS: BP 142/79
[2022-12-08 16:00] VITALS: BP 145/78
[2022-12-08] MEDS: ENOXAPARIN 40MG/0.4ML SYR SUBCUT SCH (18:19)
[2022-12-08 20:00] VITALS: BP 153/76
[2022-12-08] MEDS ORDERED: ATORVASTATIN CALCIUM 20MG TABLET PO SCH (21:00)
[2022-12-09 00:05] VITALS: BP 135/71
[2022-12-09 04:00] VITALS: BP 135/69
[2022-12-09 08:00] VITALS: BP 145/84
[2022-12-09] MEDS: ASPIRIN 81MG TABLET PO SCH (08:55)
[2022-12-09] MEDS ORDERED: CLOPIDOGREL 75MG TABLET PO SCH ×2 (09:00)
[2022-12-09 12:00] VITALS: BP 143/73
[2022-12-09 16:00] VITALS: BP 132/68
[2022-12-09] MEDS: ENOXAPARIN 40MG/0.4ML SYR SUBCUT SCH (17:16)
[2022-12-09 20:00] VITALS: BP 146/81
[2022-12-09] MEDS: AMLODIPINE 5MG TABLET PO SCH (20:36)
[2022-12-09] MEDS: ATORVASTATIN CALCIUM 40MG TABLET PO SCH (20:36)
[2022-12-10] VITALS: BP 147/84
[2022-12-10 04:00] VITALS: BP 121/66
[2022-12-10 07:40] VITALS: BP 135/75
[2022-12-10] MEDS ORDERED: MIDAZOLAM HCL 5 MG/5 ML VIAL ONE (07:40)
[2022-12-10] MEDS ORDERED: LIDOCAINE 2% 6ML GLYDO MM ONE (07:40)
[2022-12-10] MEDS ORDERED: FENTANYL CITRATE/PF 50MCG/ML 2ML VIAL ONE (07:40)
[2022-12-10] MEDS ORDERED: TETRACAINE/BENZOCAINE/BUTAMBEN 20 GM SPRAY MM ONE (07:41)
[2022-12-10] MEDS ORDERED: DIPHENHYDRAMINE 50MG/ML VIAL ONE (07:41)
[2022-12-10] MEDS ORDERED: APIXABAN 5 MG TABLET PO SCH (10:45)
[2022-12-10 12:00] VITALS: BP 166/87
[2022-12-10 12:31] LABS: BASOPHILS % 0.4 % (0.0-2.0); EOSINOPHILS % 1.2 % (0.0-5.0); HEMATOCRIT. 38.5 % (42.0-52.0); HEMOGLOBIN. 12.9 g/dL (14.0-18.0); LYMPHOCYTES % 28.8 % (20.0-50.0); MEAN CORPUSCULAR HEMOGLOBIN 31.7 pg (28.0-32.0); MEAN CORPUSCULAR VOLUME 94.6 fL (80.0-94.0); MEAN PLATELET VOLUME 9.1 fl (7.4-10.4); MONOCYTES % 9.2 % (2.0-8.0); NEUTROPHILS % 60.4 % (40.0-76.0); PLATELET 164 x1000/uL (130-400); RED BLOOD CELL COUNT 4.07 mill/uL (4.7-6.1); RED CELL DISTRIBUTION WIDTH 13.8 % (11.6-14.6)
[2022-12-10] MEDS: ASPIRIN 81MG TABLET PO SCH (12:40)
[2022-12-10] MEDS: AMLODIPINE 5MG TABLET PO SCH ×2 (12:40→20:22)
[2022-12-10 12:45] LABS: CHLORIDE 110 mEq/L (98-107)
[2022-12-10 16:05] VITALS: BP 135/85
[2022-12-10] MEDS: RIVAROXABAN 20 MG TABLET PO SCH (17:33)
[2022-12-10 20:00] VITALS: BP 161/87
[2022-12-10] MEDS: ATORVASTATIN CALCIUM 40MG TABLET PO SCH (20:22)
[2022-12-11] VITALS: BP 143/85
[2022-12-11 04:00] VITALS: BP 142/89
[2022-12-11 08:00] VITALS: BP 134/84
[2022-12-11] MEDS: AMLODIPINE 5MG TABLET PO SCH ×2 (09:45→20:57)
[2022-12-11] MEDS: ASPIRIN 81MG TABLET PO SCH (09:45)
[2022-12-11 12:00] VITALS: BP 130/80
[2022-12-11 16:00] VITALS: BP 132/80
[2022-12-11 20:00] VITALS: BP 150/93
[2022-12-11] MEDS: ATORVASTATIN CALCIUM 40MG TABLET PO SCH (20:57)
[2022-12-11] MEDS: RIVAROXABAN 20 MG TABLET PO SCH (20:57)
[2022-12-12] VITALS (7 sets, daily range): BP systolic 120–151; BP diastolic 66–80
[2022-12-12] MEDS: AMLODIPINE 5MG TABLET PO SCH ×2 (10:22→20:58)
[2022-12-12] MEDS: ASPIRIN 81MG TABLET PO SCH (10:22)
[2022-12-12] MEDS: RIVAROXABAN 20 MG TABLET PO SCH (17:17)
[2022-12-12] MEDS: ATORVASTATIN CALCIUM 40MG TABLET PO SCH (20:58)
[2022-12-13 04:00] VITALS: BP 127/69
[2022-12-13 07:24] LABS: BASOPHILS % 0.6 % (0.0-2.0); EOSINOPHILS % 2.9 % (0.0-5.0); HEMATOCRIT. 33.9 % (42.0-52.0); HEMOGLOBIN. 11.7 g/dL (14.0-18.0); LYMPHOCYTES % 24.4 % (20.0-50.0); MEAN CORPUSCULAR VOLUME 92.3 fL (80.0-94.0); MONOCYTES % 9.8 % (2.0-8.0); NEUTROPHILS % 62.3 % (40.0-76.0); PLATELET 186 x1000/uL (130-400); RED BLOOD CELL COUNT 3.67 mill/uL (4.7-6.1); RED CELL DISTRIBUTION WIDTH 13.7 % (11.6-14.6)
[2022-12-13 08:00] VITALS: BP 132/72
[2022-12-13 08:08] LABS: CHLORIDE 109 mEq/L (98-107)
[2022-12-13] MEDS: ASPIRIN 81MG TABLET PO SCH (08:14)
[2022-12-13] MEDS: AMLODIPINE 5MG TABLET PO SCH ×2 (08:14→20:22)
[2022-12-13 12:00] VITALS: BP 130/62
[2022-12-13 16:00] VITALS: BP 121/67
[2022-12-13] MEDS: RIVAROXABAN 20 MG TABLET PO SCH (16:22)
[2022-12-13 20:05] VITALS: BP 136/76
[2022-12-13] MEDS: ATORVASTATIN CALCIUM 40MG TABLET PO SCH (20:22)
[2022-12-14 00:05] VITALS: BP 116/72
[2022-12-14 04:05] VITALS: BP 122/69
[2022-12-14 08:16] VITALS: BP 123/63
[2022-12-14] MEDS: AMLODIPINE 5MG TABLET PO SCH ×2 (08:30→20:39)
[2022-12-14] MEDS: ASPIRIN 81MG TABLET PO SCH (08:30)
[2022-12-14 12:12] VITALS: BP 118/61
[2022-12-14 16:02] VITALS: BP 119/61
[2022-12-14] MEDS ORDERED: LACTULOSE 20G/30ML UDC PO NR (16:15)
[2022-12-14] MEDS: RIVAROXABAN 20 MG TABLET PO SCH (17:54)
[2022-12-14 20:00] VITALS: BP 137/78
[2022-12-14] MEDS: ATORVASTATIN CALCIUM 40MG TABLET PO SCH (20:39)
[2022-12-15] VITALS (8 sets, daily range): BP systolic 109–141; BP diastolic 50–87
[2022-12-15] MEDS: ASPIRIN 81MG TABLET PO SCH (09:02)
[2022-12-15] MEDS: AMLODIPINE 5MG TABLET PO SCH ×2 (09:10→21:34)
[2022-12-15] MEDS: RIVAROXABAN 20 MG TABLET PO SCH (16:39)
[2022-12-15] MEDS: ATORVASTATIN CALCIUM 40MG TABLET PO SCH (21:34)
[2022-12-16] VITALS: BP 108/51
[2022-12-16 04:00] VITALS: BP 112/64
[2022-12-16 08:00] VITALS: BP 120/66
[2022-12-16] MEDS: ASPIRIN 81MG TABLET PO SCH (09:49)
[2022-12-16] MEDS: AMLODIPINE 5MG TABLET PO SCH (09:51)
[2022-12-16 12:00] VITALS: BP 137/74
[2022-12-16 12:34] VITALS: BP 137/74
[2022-12-16] MEDS ORDERED: RIVA20TA PO (13:00)
[2022-12-16] MEDS ORDERED: LIP40 PO (13:00)
== END 2022-12-16 13:26 | DRG 64 ==
LOC: ER 08:50 → MICUSO 14:17 → EDBEDREQTM 14:27 → EDBEDREQ 14:27 → 7WST 16:27
PROVIDERS: ADMIT Internal Medicine; ATTEND Internal Medicine
DX: I63.9 Cerebral infarction, unspecified (principal); I21.4 Non-ST elevation (NSTEMI) myocardial infarction; I13.0 Hypertensive heart and chronic kidney disease with heart failure and stage 1 through stage 4 chronic kidney disease, or unspecified chronic kidney disease; I42.8 Other cardiomyopathies; Z20.822 Contact with and (suspected) exposure to COVID-19; I27.20 Pulmonary hypertension, unspecified; N18.9 Chronic kidney disease, unspecified; I25.10 Atherosclerotic heart disease of native coronary artery without angina pectoris; E78.5 Hyperlipidemia, unspecified; Z79.899 Other long term (current) drug therapy
CPT/HCPCS: 36415; 70496; 70498; 70551; 71045; 72100; 80048; 80053; 80061; 82040; 82550; 82553; 82962; 83036; 83880; 84484; 85025; 85379; 87426; 93005; 93306; 93312; 93880; 93970; 97162; 97166; 99291; C1893; J1200; J1650; J2250; J3010; J7030; Q9967